=== PATIENT | female | born 1935 | race Caucasian/White ===

== ENCOUNTER 2022-12-04 06:07 | Observation (INO) | payer MEDICARE ==
[2022-11-29 09:36] LABS: SARS-CoV-2 Antigen Rapid Res Negative (Negative)
[2022-12-04] MEDS ORDERED: LIDOCAINE 1% MPF 5 ML VIAL ONE (06:25)
[2022-12-04] MEDS ORDERED: CEFAZOLIN SODIUM 2 GM/VIAL ONE (06:26)
[2022-12-04] MEDS ORDERED: Ringers Lactate 1,000 ML IV ONE (06:26)
[2022-12-04] MEDS ORDERED: FENTANYL CITR 100 MCG/2 ML ONE (06:26)
[2022-12-04] MEDS ORDERED: dexAMETHasone 10 MG/ML VIAL ONE ×2 (06:26→07:55)
[2022-12-04] MEDS ORDERED: EPINEPHRINE/PF 1 MG/ML AMP ONE (06:26)
[2022-12-04] MEDS ORDERED: BUPIVACAINE 0.25% PF 30 ML VIAL ONE (06:26)
[2022-12-04] MEDS ORDERED: Oxycodone HCl/Acetaminophen 1 TAB TAB ONE (06:46)
[2022-12-04] MEDS ORDERED: ACETAMINOPHEN 500 MG TAB ONE (06:46)
[2022-12-04] MEDS ORDERED: CELECOXIB 100 MG CAPSULE ONE (06:46)
[2022-12-04] MEDS ORDERED: MIDAZOLAM HCL 2 MG/2 ML INJ ONE (07:02)
[2022-12-04] MEDS ORDERED: HYDROMORPHONE HCL 1 MG/ML INJ ONE (07:42)
[2022-12-04] MEDS ORDERED: KETOROLAC 30 MG/ML INJ ONE (07:55)
[2022-12-04] MEDS ORDERED: KETAMINE HCL 500 MG/5 ML VIAL ONE (07:55)
[2022-12-04] MEDS ORDERED: LIDOCAINE 2% MPF 5 ML VIAL ONE (07:55)
[2022-12-04] MEDS ORDERED: propofoL 200 MG/20 ML VIAL IV ONE (07:55)
[2022-12-04] MEDS ORDERED: ONDANSETRON 4 MG/2 ML VIAL ONE (07:55)
[2022-12-04] MEDS ORDERED: TRANEXAMIC ACID 1,000 MG/10 ML VIAL IV ONE (08:01)
[2022-12-04] MEDS ORDERED: Phenylephrine HCl 10 MG/ML 1 ML VIAL ONE (08:25)
[2022-12-04] MEDS ORDERED: EPHEDRINE SULF 50 MG/ML VIAL ONE (08:25)
[2022-12-04] MEDS ORDERED: NS 0.9% VIAL 10 ML ONE ×3 (08:25→08:40)
[2022-12-04] MEDS ORDERED: FUROSEMIDE 20 MG TABLET PO PRN (10:29)
--- NOTE | 2022-12-04 10:29 | P.BOP ---
Preoperative diagnosis: left knee osteoarthritis Postoperative diagnosis: same Primary procedure: left total knee arthroplasty Web Producer: NONE,NONE Estimated blood loss: 50 cc Specimen: left knee bone remnants Findings: see dictation Anesthesia: General Complications: None Implants: [employer] Person[employer] 7 CR femur, E tibia w/ stem, 10 CR poly, 29 patella Fluids & blood products: per anesthesia record; TT: 62 mins @ 300 mmHg Transferred to: Recovery Room Condition: Good
[2022-12-04] MEDS ORDERED: ACETAMINOPHEN 325 MG TABLET PO PRN (10:31)
[2022-12-04] MEDS ORDERED: ONDANSETRON 4 MG/2 ML VIAL IV PRN (10:31)
[2022-12-04] MEDS ORDERED: DOCUSATE NA 100 MG CAP PO PRN (10:31)
[2022-12-04 11:07] LABS: Hematocrit 45.4 % (36.0-45.0)
--- NOTE | 2022-12-04 12:07 | RAD REPORT ---
EXAM DESCRIPTION: RAD - Knee Left 2 View - 12/04/2022 11:05 am CLINICAL HISTORY: Post Op COMPARISON: Knee Left 3 View dated 05/04/2018 FINDINGS: Postoperative changes of a left total knee arthroplasty is noted. Skin jessica are noted a nteriorly. No unexpected immediate postoperative finding.
--- OUTSIDE RECORDS SUMMARY | 2022-12-04 12:22 | XMS REPORT | Continuity of Care Document ---
:1935 Author Organization [facility] t Address [address] [place] [address] [address] [place] [address] Care Team Providers Name Role Phone ANGELA HERMAN Primary Care Physician Unavailable Iyanoye_S Attending Clinician Unavailable Munira_Jeanna Attending Clinician Unavailable VIRGIE SAM Attending Clinician Unavailable Virgie Sam MD Attending Clinician Luci Aguero Attending Clinician URVASHI SCHAFFER Attending Clinician Unavailable Ganesh Gleason Attending Clinician Alfredo Mercado MD Attending Clinician ALFREDO MERCADO Attending Clinician Unavailable Doctor Unassigned, [place] Attending Clinician Unavailable GANESH DE LUNA Attending Clinician Unavailable Iyanoye_S Admitting Clinician Unavailable Miracle Admitting Clinician Unavailable VIRGIE SAM Admitting Clinician Unavailable ALFREDO MERCADO Admitting Clinician Unavailable Payers Payer Name Policy Type Policy Number Effective Date Expiration Date S gregoria [facility] [id number] 2021 (MEDICARE 00:00:00 REPLACEMENT HMO) [facility] VocoMD [id number] 2021 MEDICARE ADVANTAGE 00:00:00 PLAN [employer] MEDICARE ADV [id number] 2019 00:00:00 Problems Condition Condition Condition Status Onset Resolution Last Treating Co mments Source Name Details Category Date Date Treatment Clinician Date Low back Low back Disease Active Unive rs pain pain 4-12 ity of 00:00: [place] 00 Medical Branch Allergies, Adverse Reactions, Alerts Allergy Allergy Status Severity Reaction(s) Onset Inactive Treating Comm ents Source Name Type Date Date Clinician NO KNOWN Drug Active Univers ALLERGIE Class ity of S [facility] Social History Social Habit Start Date Stop Date Quantity Comments Source Exposure to 2022-07-21 2022-07-31 Not sure [facility]-CoV-2 00:00:00 13:38:00 [facility] [place] (event) [place] Alcohol intake 2022-07-31 2022-07-31 0 /d [facility] 00:00:00 00:00:00 [facility] Tobacco use and 2017-07-31 2017-07-31 Smokeless tobacco Un iversity of exposure 00:00:00 00:00:00 non-user [facility] Sex Ass[birth year] At [birth year] Universit y of 00:00:00 00:00:00 [facility] Smoking Status Start Date Stop Date Source Never smoked tobacco [facility] Medications Ordered Filled Start Stop Current Ordering Indication Dosage Frequency Signature Comments Components Source Medication Medication Date Date Medication? Clinician (SIG) Name Name iopamidol 2021-09- No [id number] 74mL 74 mL, U nivers (ISOVUE 09-30 Intravenou ity o f 370-500 mL) 21:00: 21:00 s, ONCE, 1 [place] injection 00 :00 dose, On Medica l 74 mL [facility] Branch 07/31/22 at 1600, Routine NaCl 0.9% 2021-09- No 1000mL at 999 Uni vers (NS) bolus 09-30 mL/hr, ity of infusion 19:45: 21:01 1,000 mL, Darren as 1,000 mL 00 :00 IV Medical Infusion, Branch ONCE, 1 dose, On 07/31/22 at 1445, LUÍS allopurinol 2018-09 Yes TK 1 T PO U nivers 100 mg 1-05 D FOR HIGH ity of tablet 00:00: URIC ACID [address] allopurinol 2018-09 Yes TK 1 T PO U nivers 100 mg 1-05 D FOR HIGH ity of tablet 00:00: URIC ACID [place] [facility] allopurinol 2018-09 Yes TK 1 T PO U nivers 100 mg 1-05 D FOR HIGH ity of tablet 00:00: URIC ACID [place] [address] [facility] allopurinol 2018-09 Yes TK 1 T PO U nivers 100 mg 1-05 D FOR HIGH ity of tablet 00:00: URIC ACID [place] [facility] allopurinol 2018-09 Yes TK 1 T PO U nivers 100 mg 1-05 D FOR HIGH ity of tablet 00:00: URIC ACID [place] [facility] allopurinol 2018-09 Yes TK 1 T PO U nivers 100 mg 1-05 D FOR HIGH ity of tablet 00:00: URIC ACID [place] [facility] allopurinol 2018-09 Yes TK 1 T PO U nivers 100 mg 1-05 D FOR HIGH ity of tablet 00:00: URIC ACID [place] [facility] allopurinol 2018-09 Yes TK 1 T PO U nivers 100 mg 1-05 D FOR HIGH ity of tablet 00:00: URIC ACID [place] [facility] allopurinol 2018-09 Yes TK 1 T PO U nivers 100 mg 1-05 D FOR HIGH ity of tablet 00:00: URIC ACID [place] [facility] Pantoprazol Yes 40mg Take 40 mg Univers e 40 mg 7-17 by mouth ity of delayed-rel 19:34: daily. [facility] ease 40 Medical suspension Branch gabapentin Yes Take by [facility] [place] [facility] ers ER 300 mg 7-17 mouth ity of tablet, 19:34: daily. [place] extended 40 Medical release 24 Branch hr Pantoprazol Yes 40mg Take 40 mg Univers e 40 mg 7-17 by mouth ity of delayed-rel 19:34: daily. [facility] ease 40 Medical suspension Branch gabapentin Yes Take by [facility] [place] [facility] ers ER 300 mg 7-17 mouth ity of tablet, 19:34: daily. [place] extended 40 Medical release 24 Branch hr Pantoprazol Yes 40mg Take 40 mg Univers e 40 mg 7-17 by mouth ity of delayed-rel 19:34: daily. [facility] s ease 40 Medical suspension Branch gabapentin Yes Take by [facility] [place] [facility] ers ER 300 mg 7-17 mouth ity of tablet, 19:34: daily. [place] extended 40 Medical release 24 Branch hr Pantoprazol Yes 40mg Take 40 mg Univers e 40 mg 7-17 by mouth ity of delayed-rel 19:34: daily. [facility] ease 40 Medical suspension Branch gabapentin Yes Take by [facility] [place] [facility] ers ER 300 mg 7-17 mouth ity of tablet, 19:34: daily. [place] extended 40 Medical release 24 Branch hr Pantoprazol Yes 40mg Take 40 mg Univers e 40 mg 7-17 by mouth ity of delayed-rel 19:34: daily. [place] ease 40 Medical suspension Branch gabapentin Yes Take by Univ ers ER 300 mg 7-17 mouth ity of tablet, 19:34: daily. [place] extended 40 Medical release 24 Branch hr Pantoprazol Yes 40mg Take 40 mg Univers e 40 mg 7-17 by mouth ity of delayed-rel 19:34: daily. [place] ease 40 Medical suspension Branch gabapentin Yes Take by Univ ers ER 300 mg 7-17 mouth ity of tablet, 19:34: daily. [place] extended 40 Medical release 24 Branch hr Pantoprazol Yes 40mg Take 40 mg Univers e 40 mg 7-17 by mouth ity of delayed-rel 19:34: daily. [place] ease 40 Medical suspension Branch gabapentin Yes Take by Univ ers ER 300 mg 7-17 mouth ity of tablet, 19:34: daily. [place] extended 40 Medical release 24 Branch hr Pantoprazol Yes 40mg Take 40 mg Univers e 40 mg 7-17 by mouth ity of delayed-rel 19:34: daily. [place] ease 40 Medical suspension Branch gabapentin Yes Take by Univ ers ER 300 mg 7-17 mouth ity of tablet, 19:34: daily. [place] extended 40 Medical release 24 Branch hr Pantoprazol Yes 40mg Take 40 mg Univers e 40 mg 7-17 by mouth ity of delayed-rel 19:34: daily. [place] ease 40 Medical suspension Branch gabapentin Yes Take by Univ ers ER 300 mg 7-17 mouth ity of tablet, 19:34: daily. [place] extended 40 Medical release 24 Branch hr Pantoprazol Yes 40mg Take 40 mg Univers e 40 mg 7-17 by mouth ity of delayed-rel 14:34: daily. [place] ease 40 Medical suspension Branch gabapentin Yes Take by Univ ers ER 300 mg 7-17 mouth ity of tablet, 14:34: daily. [place] extended 40 Medical release 24 Branch hr Brimonidine 2018-0 Yes 1[drp] Place 1 U nivers -Timolol 8-28 Drop in ity of (COMBIGAN) 15:14: each eye 2 [place] 0.2-0.5 % 39 (two) Medical ophthalmic times Branch drops daily. Brimonidine 2018-0 Yes 1[drp] Place 1 U nivers -Timolol 8-28 Drop in ity of (COMBIGAN) 15:14: each eye 2 [place] 0.2-0.5 % 39 (two) Medical ophthalmic times Branch drops daily. Brimonidine 2018-0 Yes 1[drp] Place 1 U nivers -Timolol 8-28 Drop in ity of (COMBIGAN) 15:14: each eye 2 [place] 0.2-0.5 % 39 (two) Medical ophthalmic times Branch drops daily. Brimonidine 2017-0 Yes 1[drp] Place 1 U nivers -Timolol 8-28 Drop in ity of (COMBIGAN) 15:14: each eye 2 [place] 0.2-0.5 % 39 (two) Medical ophthalmic times Branch drops daily. Brimonidine 2017-0 Yes 1[drp] Place 1 U nivers -Timolol 8-28 Drop in ity of (COMBIGAN) 15:14: each eye 2 [place] 0.2-0.5 % 39 (two) Medical ophthalmic times Branch drops daily. Brimonidine 2017-0 Yes 1[drp] Place 1 U nivers -Timolol 8-28 Drop in ity of (COMBIGAN) 15:14: each eye 2 [place] 0.2-0.5 % 39 (two) Medical ophthalmic times Branch drops daily. Brimonidine 2018-0 Yes 1[drp] Place 1 U nivers -Timolol 8-28 Drop in ity of (COMBIGAN) 15:14: each eye 2 [place] 0.2-0.5 % 39 (two) Medical ophthalmic times Branch drops daily. Brimonidine 2018-0 Yes 1[drp] Place 1 U nivers -Timolol 8-28 Drop in ity of (COMBIGAN) 15:14: each eye 2 [place] 0.2-0.5 % 39 (two) Medical ophthalmic times Branch drops daily. Brimonidine 2018-0 Yes 1[drp] Place 1 U nivers -Timolol 8-28 Drop in ity of (COMBIGAN) 15:14: each eye 2 [place] 0.2-0.5 % 39 (two) Medical ophthalmic times Branch drops daily. Brimonidine 2018-0 Yes 1[drp] Place 1 U nivers -Timolol 8-28 Drop in ity of (COMBIGAN) 10:14: each eye 2 [place] 0.2-0.5 % 39 (two) Medical ophthalmic times Branch drops daily. methylPREDN 2018-0 Yes 84mg Take 21 Uni vers ISolone 8-28 tablets by ity of (MEDROL, 00:00: mouth [place] LYNETTE,) 4 mg 00 SEE-INSTRU Med ical tablets CTIONS. Branch follow package directions methylPREDN 2018-0 Yes 84mg Take 21 Uni vers ISolone 8-28 tablets by ity of (MEDROL, 00:00: mouth [place] LYNETTE,) 4 mg 00 SEE-INSTRU Med ical tablets CTIONS. Branch follow package directions methylPREDN 2018-0 Yes 84mg Take 21 Uni vers ISolone 8-28 tablets by ity of (MEDROL, 00:00: mouth [place] LYNETTE,) 4 mg 00 SEE-INSTRU Med ical tablets CTIONS. Branch follow package directions methylPREDN 2018-0 Yes 84mg Take 21 Uni vers ISolone 8-28 tablets by ity of (MEDROL, 00:00: mouth [place] LYNETTE,) 4 mg 00 SEE-INSTRU Med ical tablets CTIONS. Branch follow package directions methylPREDN 2018-0 Yes 84mg Take 21 Uni vers ISolone 8-28 tablets by ity of (MEDROL, 00:00: mouth [place] LYNETTE,) 4 mg 00 SEE-INSTRU Med ical tablets CTIONS. Branch follow package directions methylPREDN 2018-0 Yes 84mg Take 21 Uni vers ISolone 8-28 tablets by ity of (MEDROL, 00:00: mouth [place] LYNETTE,) 4 mg 00 SEE-INSTRU Med ical tablets CTIONS. Branch follow package directions methylPREDN 2018-0 Yes 84mg Take 21 Uni vers ISolone 8-28 tablets by ity of (MEDROL, 00:00: mouth [place] LYNETTE,) 4 mg 00 SEE-INSTRU Med ical tablets CTIONS. Branch follow package directions methylPREDN 2018-0 Yes 84mg Take 21 Uni vers ISolone 8-28 tablets by ity of (MEDROL, 00:00: mouth [place] LYNETTE,) 4 mg 00 SEE-INSTRU Med ical tablets CTIONS. Branch follow package directions methylPREDN 2018-0 Yes 84mg Take 21 Uni vers ISolone 8-28 tablets by ity of (MEDROL, 00:00: mouth [place] LYNETTE,) 4 mg 00 SEE-INSTRU Med ical tablets CTIONS. Branch follow package directions methylPREDN 2018-0 Yes 84mg Take 21 Uni vers ISolone 8-28 tablets by ity of (MEDROL, 00:00: mouth [place] LYNETTE,) 4 mg 00 SEE-INSTRU Med ical tablets CTIONS. Branch follow package directions aspirin 81 2018-0 Yes 81mg Take 81 mg U nivers mg chewable 6-04 by mouth ity of tablet 15:51: daily. [address] aspirin 81 2018-0 Yes 81mg Take 81 mg U nivers mg chewable 6-04 by mouth ity of tablet 15:51: daily. [address] aspirin 81 2018-0 Yes 81mg Take 81 mg U nivers mg chewable 6-04 by mouth ity of tablet 15:51: daily. [address] aspirin 81 2018-0 Yes 81mg Take 81 mg U nivers mg chewable 6-04 by mouth ity of tablet 15:51: daily. [address] aspirin 81 2018-0 Yes 81mg Take 81 mg U nivers mg chewable 6-04 by mouth ity of tablet 15:51: daily. [address] aspirin 81 2018-0 Yes 81mg Take 81 mg U nivers mg chewable 6-04 by mouth ity of tablet 15:51: daily. [address] aspirin 81 2018-0 Yes 81mg Take 81 mg U nivers mg chewable 6-04 by mouth ity of tablet 15:51: daily. [address] aspirin 81 2018-0 Yes 81mg Take 81 mg U nivers mg chewable 6-04 by mouth ity of tablet 15:51: daily. [address] aspirin 81 2018-0 Yes 81mg Take 81 mg U nivers mg chewable 6-04 by mouth ity of tablet 15:51: daily. [address] aspirin 81 2018-0 Yes 81mg Take 81 mg U nivers mg chewable 6-04 by mouth ity of tablet 10:51: daily. [place] [address] Medical Branch diclofenac 2017- Yes 75mg Take 1 Unive rs 75 mg EC 2-20 tablet by ity of tablet 00:00: mouth (two) Medical times Branch daily with meals. diclofenac 2016- Yes 75mg Take 1 Unive rs 75 mg EC 2-20 tablet by ity of tablet 00:00: mouth (two) Medical times Branch daily with meals. diclofenac 2016-09 Yes 75mg Take 1 Unive rs 75 mg EC 2-20 tablet by ity of tablet 00:00: mouth (two) Medical times Branch daily with meals. diclofenac 2016- Yes 75mg Take 1 Unive rs 75 mg EC 2-20 tablet by ity of tablet 00:00: mouth (two) Medical times Branch daily with meals. diclofenac 2016-09 Yes 75mg Take 1 Unive rs 75 mg EC 2-20 tablet by ity of tablet 00:00: mouth (two) Medical times Branch daily with meals. diclofenac 2016-09 Yes 75mg Take 1 Unive rs 75 mg EC 2-20 tablet by ity of tablet 00:00: mouth (two) Medical times Branch daily with meals. diclofenac 2016-09 Yes 75mg Take 1 Unive rs 75 mg EC 2-20 tablet by ity of tablet 00:00: mouth (two) Medical times Branch daily with meals. diclofenac 2016-09 Yes 75mg Take 1 Unive rs 75 mg EC 2-20 tablet by ity of tablet 00:00: mouth (two) Medical times Branch daily with meals. diclofenac 2016-09 Yes 75mg Take 1 Unive rs 75 mg EC 2-20 tablet by ity of tablet 00:00: mouth (two) Medical times Branch daily with meals. diclofenac 2016- Yes 75mg Take 1 Unive rs 75 mg EC 2-20 tablet by ity of tablet 00:00: mouth (two) Medical times Branch daily with meals. DICLOFENAC 2016- Yes TAKE 1 Unive rs 75 mg EC 0-30 TABLET BY ity of tablet 00:00: MOUTH TWICE A Medical DAY WITH Branch MEALS DICLOFENAC 2016-09 Yes TAKE 1 Unive rs 75 mg EC 0-30 TABLET BY ity of tablet 00:00: MOUTH TWICE A Medical DAY WITH Branch MEALS DICLOFENAC 2017- Yes TAKE 1 Unive rs 75 mg EC 0-30 TABLET BY ity of tablet 00:00: MOUTH 00 TWICE A Medical DAY WITH Branch MEALS DICLOFENAC 2017- Yes TAKE 1 Unive rs 75 mg EC 0-30 TABLET BY ity of tablet 00:00: MOUTH 00 TWICE A Medical DAY WITH Branch MEALS DICLOFENAC 2017- Yes TAKE 1 Unive rs 75 mg EC 0-30 TABLET BY ity of tablet 00:00: MOUTH 00 TWICE A Medical DAY WITH Branch MEALS DICLOFENAC 2017- Yes TAKE 1 Unive rs 75 mg EC 0-30 TABLET BY ity of tablet 00:00: MOUTH 00 TWICE A Medical DAY WITH Branch MEALS DICLOFENAC 2017- Yes TAKE 1 Unive rs 75 mg EC 0-30 TABLET BY ity of tablet 00:00: MOUTH 00 TWICE A Medical DAY WITH Branch MEALS DICLOFENAC 2017- Yes TAKE 1 Unive rs 75 mg EC 0-30 TABLET BY ity of tablet 00:00: MOUTH 00 TWICE A Medical DAY WITH Branch MEALS DICLOFENAC 2017- Yes TAKE 1 Unive rs 75 mg EC 0-30 TABLET BY ity of tablet 00:00: MOUTH 00 TWICE A Medical DAY WITH Branch MEALS DICLOFENAC 2017- Yes TAKE 1 Unive rs 75 mg EC 0-30 TABLET BY ity of tablet 00:00: MOUTH 00 TWICE A Medical DAY WITH Branch MEALS simvastatin 2017-0 Yes 20mg Take 20 mg Univers 20 mg 2-13 by mouth ity of tablet 00:00: every [place] 00 evening. [facility] simvastatin 2017-0 Yes 20mg Take 20 mg Univers 20 mg 2-13 by mouth ity of tablet 00:00: every [place] 00 evening. [facility] simvastatin 2017-0 Yes 20mg Take 20 mg Univers 20 mg 2-13 by mouth ity of tablet 00:00: every [place] 00 evening. [facility] simvastatin 2017-0 Yes 20mg Take 20 mg Univers 20 mg 2-13 by mouth ity of tablet 00:00: every [place] 00 evening. [facility] simvastatin 2017-0 Yes 20mg Take 20 mg Univers 20 mg 2-13 by mouth ity of tablet 00:00: every [place] 00 evening. [facility] simvastatin 2017-0 Yes 20mg Take 20 mg Univers 20 mg 2-13 by mouth ity of tablet 00:00: every [place] 00 evening. [facility] simvastatin 2017-0 Yes 20mg Take 20 mg Univers 20 mg 2-13 by mouth ity of tablet 00:00: every [place] 00 evening. Medical Branch simvastatin 2017-0 Yes 20mg Take 20 mg Univers 20 mg 2-13 by mouth ity of tablet 00:00: every [place] evening. Medical Branch simvastatin 2017-0 Yes 20mg Take 20 mg Univers 20 mg 2-13 by mouth ity of tablet 00:00: every [place] evening. [facility] simvastatin 2017-0 Yes 20mg Take 20 mg Univers 20 mg 2-13 by mouth ity of tablet 00:00: every [place] evening. [facility] Branch lisinopril 2017-0 Yes 20mg Take 20 mg U nivers 20 mg 2-02 by mouth ity of tablet 00:00: daily. [place] [facility] hydroCHLORO 2017-0 Yes 25mg Take 25 mg Univers thiazide 25 2-02 by mouth ity of mg tablet 00:00: daily. [facility] lisinopril 2017-0 Yes 20mg Take 20 mg U nivers 20 mg 2-02 by mouth ity of tablet 00:00: daily. [facility] hydroCHLORO 2017-0 Yes 25mg Take 25 mg Univers thiazide 25 2-02 by mouth ity of mg tablet 00:00: daily. [facility] lisinopril 2017-0 Yes 20mg Take 20 mg U nivers 20 mg 2-02 by mouth ity of tablet 00:00: daily. [facility] hydroCHLORO 2017-0 Yes 25mg Take 25 mg Univers thiazide 25 2-02 by mouth ity of mg tablet 00:00: daily. [facility] lisinopril 2017-0 Yes 20mg Take 20 mg U nivers 20 mg 2-02 by mouth ity of tablet 00:00: daily. [facility] hydroCHLORO 2017-0 Yes 25mg Take 25 mg Univers thiazide 25 2-02 by mouth ity of mg tablet 00:00: daily. [facility] lisinopril 2017-0 Yes 20mg Take 20 mg U nivers 20 mg 2-02 by mouth ity of tablet 00:00: daily. [facility] hydroCHLORO 2017-0 Yes 25mg Take 25 mg Univers thiazide 25 2-02 by mouth ity of mg tablet 00:00: daily. [facility] lisinopril 2017-0 Yes 20mg Take 20 mg U nivers 20 mg 2-02 by mouth ity of tablet 00:00: daily. [place] [facility] hydroCHLORO 2017-0 Yes 25mg Take 25 mg Univers thiazide 25 2-02 by mouth ity of mg tablet 00:00: daily. [place] [facility] lisinopril 2017-0 Yes 20mg Take 20 mg U nivers 20 mg 2-02 by mouth ity of tablet 00:00: daily. [place] [facility] hydroCHLORO 2017-0 Yes 25mg Take 25 mg Univers thiazide 25 2-02 by mouth ity of mg tablet 00:00: daily. [place] [facility] lisinopril 2017-0 Yes 20mg Take 20 mg U nivers 20 mg 2-02 by mouth ity of tablet 00:00: daily. [place] [facility] hydroCHLORO 2017-0 Yes 25mg Take 25 mg Univers thiazide 25 2-02 by mouth ity of mg tablet 00:00: daily. [place] [facility] lisinopril 2017-0 Yes 20mg Take 20 mg U nivers 20 mg 2-02 by mouth ity of tablet 00:00: daily. [place] [facility] hydroCHLORO 2017-0 Yes 25mg Take 25 mg Univers thiazide 25 2-02 by mouth ity of mg tablet 00:00: daily. [place] [facility] lisinopril 2017-0 Yes 20mg Take 20 mg U nivers 20 mg 2-02 by mouth ity of tablet 00:00: daily. [place] [facility] hydroCHLORO 2017-0 Yes 25mg Take 25 mg Univers thiazide 25 2-02 by mouth ity of mg tablet 00:00: daily. [address] amLODIPine 2017-0 Yes 5mg Take 5 mg Un brian 5 mg tablet 1-23 by mouth ity of 00:00: daily. [place] [facility] amLODIPine 2017-0 Yes 5mg Take 5 mg Un brian 5 mg tablet 1-23 by mouth ity of 00:00: daily. [place] [facility] amLODIPine 2017-0 Yes 5mg Take 5 mg Un brian 5 mg tablet 1-23 by mouth ity of 00:00: daily. [address] amLODIPine 2017-0 Yes 5mg Take 5 mg Un brian 5 mg tablet 1-23 by mouth ity of 00:00: daily. [place] [facility] amLODIPine 2017-0 Yes 5mg Take 5 mg Un brian 5 mg tablet 1-23 by mouth ity of 00:00: daily. [address] amLODIPine 2017-0 Yes 5mg Take 5 mg Un biran 5 mg tablet 1-23 by mouth ity of 00:00: daily. [place] [facility] amLODIPine 2017-0 Yes 5mg Take 5 mg Un brian 5 mg tablet 1-23 by mouth ity of 00:00: daily. [address] amLODIPine 2017-0 Yes 5mg Take 5 mg Un brian 5 mg tablet 1-23 by mouth ity of 00:00: daily. [place] [facility] amLODIPine 2017-0 Yes 5mg Take 5 mg Un brian 5 mg tablet 1-23 by mouth ity of 00:00: daily. [address] amLODIPine 2017-0 Yes 5mg Take 5 mg Un brian 5 mg tablet 1-23 by mouth ity of 00:00: daily. [address] Immunizations Ordered Filled Immunization Date Status Comments [facility] e Immunization Name Name SARS-COV-2 COVID-19 2020-11-29 Completed Unive rsity of PFIZER VACCINE 00:00:00 [facility] SARS-COV-2 COVID-19 2020-11-08 Completed Unive rsity of PFIZER VACCINE 00:00:00 [facility] Vital Signs Vital Name Observation Time Observation Value Comments Source Systolic blood 2022-07-31 21:31:00 130 mm[Hg] Univer sity of pressure [facility] Diastolic blood 2022-07-31 21:31:00 76 mm[Hg] Unive rsity of pressure [facility] Heart rate 2022-07-31 21:31:00 68 /min [facility] Respiratory rate 2022-07-31 21:31:00 14 /min [facility] Oxygen saturation in 2022-07-31 21:31:00 96 /min [facility] Arterial blood by [facility] Pulse oximetry [place] Body temperature 2022-07-31 18:41:00 35.39 [place] [facility] [place] [facility] Body height 2022-07-31 18:41:[address] [facility] Body weight 2022-07-31 18:41:[address] [facility] BMI 2022-07-31 18:41:00 36.58 kg/m2 [facility] Systolic blood 2020-10-30 20:33:00 123 mm[Hg] Univer sity of pressure [facility] Diastolic blood 2020-10-30 20:33:00 81 mm[Hg] Unive rsity of [facility] Body height 2020-10-30 20:33:00 157[facility]5 [facility] Body weight 2020-10-30 20:33:[address] [facility] BMI 2020-10-30 20:33:00 32.92 kg/m2 [facility] ty [facility] Systolic blood 2020-03-15 18:52:00 128 mm[Hg] Univer sity of [facility] Diastolic blood 2020-03-15 18:52:00 74 mm[Hg] Unive rsity of [facility] Heart rate 2020-03-15 18:52:00 82 /min [facility] Body temperature 2020-03-15 18:52:00 36.67 [place] [facility] Respiratory rate 2020-03-15 18:52:00 18 /min [facility] Systolic blood 2020-03-15 18:52:00 128 mm[Hg] Univer sity of [facility] Diastolic blood 2020-03-15 18:52:00 74 mm[Hg] Unive rsity of [facility] Heart rate 2020-03-15 18:52:00 82 /min [facility] Body temperature 2020-03-15 18:52:00 36.67 [place] [facility] Respiratory rate 2020-03-15 18:52:00 18 /min [facility] Procedures Procedure Date / Time Performing Clinician Source Performed EKG-12 LEAD 2022-07-31 22:59:58 Virgie Sam [facility] URINALYSIS 2022-07-31 21:32:00 Virgie Sam [facility] CT ANGIOGRAM CHEST 2022-07-31 20:14:47 Virgie Sam [facility] CONSENT/REFUSAL FOR 2022-07-31 20:01:22 Doctor Unassigned, [facility] [place] [facility] DI[facility] AND TREATMENT [facility] TROPONIN I 2022-07-31 19:18:00 Virgie Sam [facility] HEPATIC FUNCTION PANEL 2022-07-31 19:18:00 Virgie Sam [facility] ([id number]) (ALB,T.PRO,BILI Medical Branch T,BU/BC,ALT,AST,ALK PHOS) BASIC METABOLIC PANEL 2022-07-31 19:18:00 Virgie Sam [facility] (NA, K, CL, CO2, GLUCOSE, Medica l Branch BUN, CREATININE, CA) CBC WITH DIFF 2022-07-31 19:18:00 Virgie Sam [facility] XR CHEST 1 VW 2022-07-31 19:16:34 Virgie Sam [facility] LACTIC ACID WHOLE BLOOD 2022-07-31 19:07:00 [facility] 06:01:00 Doctor Unassigned, [facility] REQUEST/RESPONSE [facility] EXTERNAL PROVIDER RECORDS 2019-11-11 06:01:00 Doctor Unassigned, [facility] EXTERNAL PROVIDER RECORDS 2019-10-28 06:01:00 Doctor Unassigned, [facility] REFERRAL- 2019-10-12 06:01:00 Doctor Unassigned, [facility] REQUEST/RESPONSE [facility] INSURANCE CORRESPONDENCE 2019-04-29 05:01:00 Doctor Femi, [facility] Name Medical [facility] Encounters Start End Encounter Admission Attending Care Care Encounter Source Date/Time Date/Time Type Type Clinicians Facility Department ID 2022-12-03 2022-12-03 [id number] Devoted 00:00:00 00:00:00 [id number] [facility] l [facility] 2022-08-13 2022-08-13 Outpatient Tumelson_A BENJAMIN BENJAMIN [id number] Devoted 00:00:00 00:00:00 [id number] Medica l Group 2022-07-31 2022-07-31 Emergency X FLACO [facility] ERT [id number] Univers 13:37:00 18:15:00 VIRGIE justice [facility] 2022-07-312022-07-31 [facility] [id number] Univers 13:37:00 18:15:00 [facility] [id number] [facility] 4.2.7.2.686 [id number] Med[facility] yue 084 [place] 2022-04-23 2022-04-23 CAV Luci 2.16.840. 2.16.840.1. CLAC [id number] Devoted 15:30:00 16:30:00 Aguero [id number] [facility] [id number] 2022-04-12 2022-04-12 [facility] [id number] Devoted 04:10:00 04:10:00 [id number] Medica l Group 2021-07-27 2021-07-27 [facility] [id number] Devoted 11:00:00 11:00:00 [id number] Medica l Group 2020-11-29 2020-11-29 [facility] [id number] Univers 09:50:00 09:50:00 [facility] 2020-11-08 2020-11-08 Outpatient [facility] [id number] Univers 10:10:00 10:10:00 URVASHI [facility] 2020-10-30 2020-10-30 Office Ganesh De Luna [facility] [id number] Univers 14:29:10 15:46:12 Visit Alfredo Mercado [facility] 350.1.13.10 ity Formerly named [facility] 4.2.7.2.686 [facility] [id number] Pr dical es [address] [place] 2020-10-30 2020-10-30 Outpatient Orlando [facility] [id number] Univers 14:45:00 14:45:00 [facility] 2020-03-15 2020-03-15 Office Jess [facility] [id number] Univers 13:48:14 14:45:19 Visit Alfredo Koenig [facility] 350.1.13.10 it y of Surgical 4.2.7.2.686 Darren as Specialti [id number] Me dical es 198 [facility] 2020-03-15 2020-03-15 Office Jess [facility] [id number] 13:48:14 14:45:19 Visit Alfredo Koenig [facility] 350.1.13.10 Surgical 4.2.7.2.686 Specialti [id number] es [address] [place] 2020-03-15 2020-03-15 [facility] [id number] Univers 14:15:00 14:15:00 ALFREDOANAHI justice [facility] 2020-03-08 2020-03-08 Outpatient [facility] [id number] Univers 15:15:00 15:15:00 ALFREDO justice [facility] 2019-12-03 2019-12-03 Orders Doctor ESPINAL [id number] Univers 00:00:00 00:00:00 Only Unassigned, KENA 350.1.13.10 ity of [facility] 4.2.7.2.686 Darren as [id number] [address] 2019-11-11 2019-11-11 Outpatient R CALIXTO [facility] [id number] Univers 13:45:00 13:45:00 GANESH itkulwant [facility] 2019-11-11 2019-11-11 Orders Doctor ESPINAL [id number] Univers 00:00:00 00:00:00 Only Unassigned, KENA 350.1.13.10 ity of [facility] 4.2.7.2.686 Darren as [id number] [address] 2019-10-28 2019-10-28 Orders Doctor TEDDY Orozco.2.840.114 [id number] Univers 00:00:00 00:00:00 Only Unassigned, KENA 350.1.13.10 ity of [facility] 4.2.7.2.686 Darren as [id number] [address] 2019-10-12 2019-10-12 Orders Doctor TEDDY Zurita2.840.114 [id number] Univers 00:00:00 00:00:00 Only Unassigned, KENA 350.1.13.10 ity of [facility] 4.2.7.2.686 Darren as [id number] [address] 2019-09-20 2019-09-20 Outpatient [facility] [id number] Univers 09:30:00 10:32:37 [facility] 2019-09-16 2019-09-16 Outpatient [facility] [id number] Univers 17:53:28 23:59:00 [facility] 2019-09-02 2019-09-02 Outpatient [facility] [id number] Univers 10:30:00 11:02:58 [facility] 2019-04-29 2019-04-29 Orders Doctor ESPINAL [id number] [id number] Univers 00:00:00 00:00:00 Only Unassigned, KENA 350.1.13.10 ity of [facility] 4.2.7.2.686 Darren as [id number] [address] 2019-04-14 2019-04-14 Outpatient [facility] [id number] Univers 14:45:00 15:54:03 [facility] Results This patient has no known results.
[2022-12-04 12:49] VITALS: BMI 35.1
[2022-12-04] MEDS: CEFAZOLIN SODIUM 2 GM in NA CHLORIDE 0.9% 100 ML IVPB SCH ×2 (14:20→22:00)
[2022-12-04] MEDS ORDERED: ATORVASTATIN 10 MG TAB PO SCH (21:00)
[2022-12-04] MEDS: TIMOLOL OPTH SCH (21:00)
[2022-12-04] MEDS: BRIMONIDINE TARTRATE OPTH SCH (21:00)
[2022-12-04] MEDS: GABAPENTIN 300 MG CAP PO SCH (22:00)
[2022-12-04] MEDS: TRAMADOL HCL 50 MG TAB PO PRN (22:18)
[2022-12-05] MEDS: HYDROCODONE/APAP 7.5/325 MG TAB PO PRN ×2 (00:49→06:23)
[2022-12-05 02:07] VITALS: O2SAT 94
[2022-12-05 03:40] LABS: Hematocrit 42.7 % (36.0-45.0)
[2022-12-05] MEDS ORDERED: ENOXAPARIN 30 MG/0.3 ML SQ SCH (06:00)
[2022-12-05] MEDS: CEFAZOLIN SODIUM 2 GM in NA CHLORIDE 0.9% 100 ML IVPB SCH (06:10)
[2022-12-05] MEDS: GABAPENTIN 300 MG CAP PO SCH (08:28)
[2022-12-05] MEDS: BRIMONIDINE TARTRATE OPTH SCH (08:28)
[2022-12-05] MEDS: TIMOLOL OPTH SCH (08:28)
[2022-12-05] MEDS ORDERED: CALCITONIN NASAL SPRAY 200 IU/DOSE NAS SCH (09:00)
[2022-12-05] MEDS ORDERED: lisinopriL 20 MG TAB PO SCH (09:00)
[2022-12-05] MEDS ORDERED: CELECOXIB 100 MG CAPSULE PO SCH (09:00)
[2022-12-05] MEDS ORDERED: allopurinoL 100 MG TAB PO SCH (09:00)
[2022-12-05] MEDS ORDERED: PANTOPRAZOLE 40MG TABLET PO SCH (09:00)
[2022-12-05] MEDS ORDERED: CALCIUM CARBONATE 500 MG TAB PO SCH (09:00)
[2022-12-05] MEDS ORDERED: AMLODIPINE 5 MG TAB PO SCH (09:00)
[2022-12-05] MEDS: TRAMADOL HCL 50 MG TAB PO PRN (10:50)
--- NOTE | 2022-12-05 11:15 | P.OP ---
Preoperative diagnosis: left knee osteoarthritis Postoperative diagnosis: same Primary procedure: left total knee arthroplasty Anesthesia: general Estimated blood loss: 50 cc Specimen: left knee bone remnants Findings: see dictation Operative Technique: Indication For Procedure: Cielo is an 87 year-old female presenting to my clinic with signs, symptoms and x-ray findings consistent with a severe left knee osteoarthritis. I discussed with the patient at length risks and benefits associated with operative and nonoperative treatment. She had failed conservative treatment measures and had significant difficulties with ADLs secondary to her pain. We discussed operative treatment and elected to proceed with left total knee arthroplasty. She expressed understanding and elected to proceed with operative treatment. Description Of Procedure: After informed consent was obtained, the patient was identified in the preoperative holding area. The left lower extremity was marked. The patient was then taken to the PACU where he underwent a left lower extremity adductor canal block performed by Anesthesia. She was then taken to the operating room, transferred to the operating table in supine fashion, and placed under general anesthesia. Her left lower extremity was then prepped and draped in usual sterile fashion. A time-out was initiated. The correct patient and procedure were confirmed and identified. The patient did receive her preoperative prophylactic antibiotics. The left lower extremity was then exsanguinated and tourniquet was inflated to 300 mmHg. Approximately 15 cm longitudinal incision was made centered over the anterior aspect of the left knee. Dissection was then taken to the extensor mechanism and a medial parapatellar arthrotomy was performed. The patella was everted and dislocated laterally and the knee was flexed in the fat pad. There were multiple osteophytes and heterotopic bone superior to the patella that were removed. Medial lateral meniscus and ACL were all excised exposing the distal femur. Excess hypertrophic synovium was also excised within the suprapatellar pouch. The patient had an MRI of the left knee preoperatively for surgical planning and creation of cutting blocks. The cutting block was then placed over the distal femur and pins were then placed. The distal femoral cutting block was then placed over the pins. An ezequiel wing was then used to ensure proper depth cut and the distal femur was then cut. The chamfer cutting guide was then placed over the distal end of the femur. Anterior, posterior cuts as well as anterior and posterior chamfer cuts were then made again confirming proper depth of the cut using an Ezequiel wing. Excess bone remnants were then sent to pathology for further evaluation. Next, attention was taken to the proximal tibia. A tibial jig and tibial cutting block was then placed on proximal aspect of the right tibia and locked into position. Pins were then placed and alignment guide was then used to confirm proper alignment of the cut and then coronal and sagittal planes. Once this was confirmed, the cutting jig was placed over the pins and the proximal tibia was cut. Sizing trays were then selected and size 10 mm spacer was used and there was good overall balance in flexion and extension. Next, the trial implants were then placed using the size 7 standard CR femur and a size E tibia with a 10 mm poly. There was overall good range of motion and good stability and the trial implants were then removed. The wound was then irrigated thoroughly with normal saline and the knee was then injected with 30 cc of 0.5% Marcaine both in the posterior capsule and medial and lateral gutters as well as quadriceps tendon and periosteum. The tibia was then punched. The femur was drilled. The cement was then prepared on the back table. Cement was then placed first on the tibial surface followed by size E tibia with a stem given her age to aid with fixation and stability. Excess cement was removed with [place]ville elevators. Size 7 standard CR femur was then placed on the distal femur after cement was placed on the distal femur. Excess cement was then removed and a size 10 mm trial poly was then placed. The knee was held in extension as the cement hardened. Undersurface of the patella was prepared debriding osteophytes using rongeurs as well as osteophytes had been debrided off the proximal tibia with rongeurs and osteotomes to aid with the medial tightness. Cement was placed on the undersurface of the patella after it was cut and a size 29 patella was placed. Once the cement was hardened, the knee was ranged, there was good overall stability both in flexion, extension and as well as stability with varus and valgus stresses. Trial poly was then removed and a size 10 mm CR poly was then placed and locked into position. The knee was then ranged again. There was good overall range of motion both for flexion and extension with good stability. The wound was then irrigated again thoroughly with normal saline using pulse lavage. Tourniquet was let down. Hemostasis was achieved using Bovie electrocautery. Extensor mechanism was then approximated using a #1 Vicryl bothin interrupted and running fashion. The fascia was then approximated using 0 Vicryl. Subcutaneous tissue was approximated with a 2-0 Vicryl. Skin was approximated using jessica. Sterile dressings were applied. The patient was awakened and transferred back in stable condition Complications: None Implants: Biomet Julius Person 7 CR femur, E tibia w/ stem, 29 patella, 10 CR poly Fluids & blood products: TT: 62 mins @ 300 mmHg Transferred to: Recovery Room Condition: Good
[2022-12-05 12:43] VITALS: BP 107/53; TEMP 97.6
--- NOTE | 2022-12-05 13:08 | P.DS ---
Admission Date: 12/04/22 Discharge Date: 12/05/22 Disposition: DC HOME/HOME HEALTH CARE Discharge Condition: GOOD Reason for Admission: left TKA Consultations: none Procedures: left TKA 12/04/2022 Brief History of Present Illness: Jazmine is a 89-year-old female who underwent left total knee arthroplasty on December 04, 2022 and was admitted to the floor in stable condition. Hospital Course: Patient was admitted to the floor postoperatively in stable condition. Physical therapy was consulted to aid with mobilization. Patient mobilized safely and was discharged in stable condition on December 05, 2022. While in the hospital the patient received Lovenox for DVT prophylaxis and was discharged on Xarelto. She will follow-up in 2 weeks for reevaluation and staple removal. Vital Signs/Physical Exam: Temp Pulse Resp BP Pulse Ox 97.6 F 76 17 107/53 L 93 12/05/22 12:00 12/05/22 12:00 12/05/22 12:00 12/05/22 12:00 12/05/22 12:00 Laboratory Data at Discharge: Hgb 13.9 g/dL (12.0-15.0) 12/05/22 03:00 Hct 42.7 % (36.0-45.0) 12/05/22 03:00 Home Medications: Allopurinol 100 mg PO DAILY 11/08/22 Amlodipine Besylate 5 mg PO DAILY 11/08/22 Brimonidine Tartrate/Timolol [Combigan 0.2%-0.5% Eye Drops] 5 ml EACH EYE BID 11/08/22 Calcitonin [Miacalcin Nasal Plover*] 1 spray NS DAILY 11/08/22 Calcium Carbonate [Calcium] 600 mg PO DAILY 11/08/22 Furosemide [Lasix*] 20 mg PO DAILYPRN PRN 11/08/22 Gabapentin 300 mg PO BID 11/08/22 Lisinopril [Zestril] 20 mg PO DAILY 11/08/22 Multivit-Min/FA/Lycopen/Lutein [Centrum Silver Tablet] 1 each PO DAILY 11/08/22 Pantoprazole [Protonix Tab*] 40 mg PO DAILY 11/08/22 Simvastatin [Zocor] 20 mg PO DAILY 11/08/22 Ubidecarenone [Co Q-10] 200 mg PO DAILY 11/08/22 glucosamine HCL [Glucosamine HCl] 1,500 mg PO DAILY 11/08/22 Hydrocodone 7.5/APAP 325 [[place] 7.5/325 mg*] 1 tab PO Q4H PRN tab 12/05/22 Physician Discharge Instructions: Keep dressing clean, dry and intact. Do not get dressing wet. May be weightbearing as tolerated. Begin Xarelto tomorrow, December 06, with breakfast and take once daily. Use bilateral thigh-high STEFANI hose for 2 weeks to aid with swelling. Diet: Regular Activity: Weight bearing as tolerated Followup: Rob Watters MD [Primary Care Provider] - Alexander Santos MD [ACTIVE - CAN ADMIT] - 1-2 Weeks
== END 2022-12-05 14:42 | disposition home health service (06) ==
LOC: OR 06:07 → 2ND 12:18
PROVIDERS: ADMIT Orthopaedic Surgery Sports Medicine; ATTEND Orthopaedic Surgery Sports Medicine
PROC: 0SRD069 Replacement of Left Knee Joint with Oxidized Zirconium on Polyethylene Synthetic Substitute, Cemented, Open Approach (ICD-10-PCS; principal; 2022-12-04 08:00)
DX: M17.12 Unilateral primary osteoarthritis, left knee (principal); M25.562 Pain in left knee; Z20.822 Contact with and (suspected) exposure to COVID-19
CPT/HCPCS: 36415 ×3; 88305; 88311; 85018 ×2; 85014 ×2; 73560; 97110; 97116 ×2; 97139; 97161; 97530 ×2; 94010; 87811; 27447; C1776; A4216 ×3; J2704; J0171; J2001 ×2; J2370; J1650; J2250; J3010; J1100 ×2; J1170; J2405; J7120